=== PATIENT | male | born 1980 | race Caucasian/White ===

== ENCOUNTER 2018-02-21 06:43 | Day surgery (SDC) | payer OTHER ==
--- NOTE | 2018-02-21 10:16 | CP.SDSHP ---
Same Day Surgery H & P - History Proposed Procedure: EGD Pre-Op Diagnosis: SERE NOTES - Previous Medical/Surgical History Neuro: Other Misc: Other Pain: 4.Moderate Pain - Allergies Allergies: Allergies No Known Allergies Allergy (Verified 02/21/18 07:28) - Physical Exam General Appearance: N Vital Signs: Vital Signs 02/21/18 07:20 Temperature 98.1 F Pulse Rate 79 Respiratory 19 Rate Blood Pressure 135/99 H O2 Sat by Pulse 97 Oximetry Mental Status: Alert & Oriented x3 Neuro: Other Heart: WNL Lungs: Other GI: Other - {Optional Preform as Required} Breast: WNL Abdomen: Other Rectal: Other Integument: WNL : WNL Ortho: Other ENT: WNL - Impression Pt. Evaluated Today:Candidate for Anesthesia & Procedure: Yes - Date & Time Time: 10:15 Short Stay Discharge - Short Stay Discharge Admitting Diagnosis/Reason for Visit: DYSPEPSIA Disposition: HOME/ ROUTINE
[2018-02-21] MEDS ORDERED: Lactated Ringer's 1,000 ML IV ONE (10:22)
[2018-02-21] MEDS ORDERED: Lidocaine 2% MPF (5 ml) Inj ONE (10:23)
[2018-02-21] MEDS ORDERED: Propofol 10 mg/ml Inj (20 ML) ONE (10:25)
[2018-02-21 10:56] VITALS: TEMP 97.7
[2018-02-21 11:48] VITALS: BP 121/67; PULSE 77; RESP 14; O2SAT 98
== END 2018-02-21 13:00 | disposition home or self-care (01) ==
LOC: C.ENDO 06:43
PROVIDERS: ATTEND Specialist
DX: K30 Functional dyspepsia (principal); K20.9 Esophagitis, unspecified; I89.0 Lymphedema, not elsewhere classified
CPT/HCPCS: 43239; 88305; 88313; 88342; J2704; J7120